=== PATIENT | female | born 1975 | race African-American/Black ===

== ENCOUNTER 2023-11-22 09:14 | Day surgery (SDC) | payer BC ==
[2023-11-21 11:45] VITALS: BMI 25.8
[2023-11-22 09:29] VITALS: RESP 18
[2023-11-22] MEDS ORDERED: PROPOFOL 120 ML ONE (11:05)
[2023-11-22 11:26] VITALS: PULSE 79; TEMP 97.8
[2023-11-22 11:58] VITALS: BP 120/74
== END 2023-11-22 11:58 | disposition home or self-care (01) ==
LOC: FASU-ENDO 09:14
PROVIDERS: ATTEND Internal Medicine Gastroenterology
PROC: 0DJD8ZZ Inspection of Lower Intestinal Tract, Via Natural or Artificial Opening Endoscopic (ICD-10-PCS; principal; 2023-11-22 10:35)
DX: Z12.11 Encounter for screening for malignant neoplasm of colon (principal); K64.1 Second degree hemorrhoids
CPT/HCPCS: 81025

== ENCOUNTER 2024-02-05 15:47 | Emergency (ER) | payer BC, OTHER ==
[2024-02-05 15:51] VITALS: BP 145/89; PULSE 74; RESP 19; TEMP 97.8; BMI 26.6
[2024-02-05] MEDS ORDERED: ACETAMINOPHEN 500 MG TABLET (FP) PO ONE (16:42)
[2024-02-05] MEDS ORDERED: KETOROLAC TROMETHAMINE 30 MG/1 ML VIAL IM ONE (16:42)
[2024-02-05] MEDS ORDERED: ACETAMINOPHEN 500 MG TABLET (FP) ONE (16:45)
[2024-02-05] MEDS ORDERED: KETOROLAC TROMETHAMINE 30 MG/1 ML VIAL ONE (16:45)
== END 2024-02-05 16:59 | disposition home or self-care (01) ==
LOC: JERFT 15:47
DX: R51.9 Headache, unspecified (principal); M25.562 Pain in left knee; V49.40XA Driver injured in collision with unspecified motor vehicles in traffic accident, initial encounter
CPT/HCPCS: 99283-25